=== PATIENT | female | born 1940 | race Caucasian/White ===

== ENCOUNTER 2017-01-06 10:13 | Day surgery (SDC) | payer MEDICARE ==
[~2017-01-06] VITALS: Ht 154.9 cm; Wt 67.2 kg
[2017-01-06] MEDS ORDERED: IOHEXOL 350 MG/ML 50 ML BTL (for Cath Lab) OTHER ONE (10:14)
[2017-01-06] MEDS ORDERED: TURM500C4 PO (10:58)
[2017-01-06] MEDS ORDERED: VITA10002 PO (10:58)
[2017-01-06] MEDS ORDERED: LISI-515 PO (10:58)
[2017-01-06] MEDS ORDERED: CO Q100C9 (10:58)
[2017-01-06] MEDS ORDERED: ATOR10TA15 PO (10:58)
[2017-01-06] MEDS ORDERED: LACTCAP8 PO (10:58)
[2017-01-06] MEDS ORDERED: MULTTAB67 PO (10:58)
[2017-01-06] MEDS ORDERED: DULE200A INH (10:58)
[2017-01-06] MEDS ORDERED: VITA200013 (10:58)
[2017-01-06] MEDS ORDERED: NS 1000P @30 MLS/HR (KVO) IV SCH (11:00)
[2017-01-06 11:01] VITALS: BP 181/93; PULSE 71; RESP 18; TEMP 98.1; O2SAT 97
[2017-01-06] MEDS ORDERED: MIDAZOLAM HCL 2 MG/2 ML VIAL ONE ×2 (12:16→12:47)
[2017-01-06] MEDS ORDERED: HEPARIN-NS/PF INJ 1,000 ML ONE (12:16)
[2017-01-06] MEDS ORDERED: MISC INFORMATION XX ONE (13:15)
[2017-01-06] MEDS ORDERED: oxyCODONE/ACETAMINOPHEN 5 MG/325 MG TAB PO PRN (13:15)
[2017-01-06] MEDS ORDERED: BACITRACIN OINT 0.9 GM PKT TOP ONE (13:15)
--- NOTE | 2017-01-06 13:21 | CATHPROC ---
[employer] HIS Report Study Information Study Number Admission Scheduled Start Study Start [id number] Jan 06 2017 10:13AM 01/06/2017 Jan 06 2017 11:49AM [facility] Cardiac Catheterization Admit Source Facility Department Other [facility] Operator Physician and Clinical Staff Initial Blair Carlin Senior Piping Designer Giancarlo Benitez RN Recorder Lori Land,JANA TECH2 Scrub Ryan Simms RCIS(BS) Procedures Performed Procedure Location (Site) Vessel Name Coronary Angiograms LCA Left Coronary Coronary Angiograms RCA Right Coronary Coronary Angiograms Radial (right) Radial Art. Wire insertion Fem Art (right) Femoral Art Equipment Time [employer] Dispatcher Description Size Mfg Part Number Used/Scraped TRANSDUCER, TRUWAVE [id number] 12:08 CASTRO CONNER * Used W/STOCKCOCK *[id number] *[id number] *[id number] WIRE, HYDROSTEER 150CM [id number] 12:54 [employer] [facility] 150CM Used ANGLED GLIDE *[id number] 12:08 [facility] PACK, CCL CUSTOM * Used *[id number] 12:08 [facility] SUPPORT, ARTERIAL ADULT [id number] *[id number] Used [id number] 12:08 [employer] PACER PEN, SKIN DUAL W/ RULER * Used *[id number] BAND, RADIAL COMPRESSION TR [id number] 13:07 [facility] 24CM Used SHORT 24 *[id number] SHEATH, FR6 RADIAL PRELUDE 12:08 [facility] FR 6 [id number] Used EASE 11CM [id number] 12:08 [facility] WIRE, EXCHANGE 260CM 3MMJ 260CM Used *[id number] 12:08 [employer] OMNIPAQUE, 350 MG, 150ML 150ML [id number] Used [id number] 12:08 [employer] BLANKET,WARM AIR CCL * Used *[id number] History: Current Medications Medication Dosage/Unit Route Frequency Last Date/Time Taken Statins (any) LISINOPRIL VITAMIN D History: Allergies Allergy Reaction nitrofurantoin pravastatin simvastatin penicillin G bee venom protein (honey bee) ezetimibe rosuvastatin History: Risk Factors Family History of Hypertension Dyslipidemia Previous FL Previous Heart Failure Premature CAD Yes Yes Yes No No Prior Valve Prior PCI Prior CABG Surgery No No No Cerebrovascular Peripheral Artery Chronic Lung On Dialysis Diabetes Disease Disease Disease No No No Yes No History: Symptoms/Diagnosis Selection Items SOB History: Stress Tests Stress or Imaging Studies Performed Yes Standard Exercise Stress Test No Stress Echo No Stress Test SPECT Stress Test SPECT Result Stress Test SPECT Ischemia Risk/Extent Yes Positive High Stress Test CMR No Cardiac CTA Coronary Calcium Score No No History: Other Disease Selection Items Gerd History: Other Current Smoker Method Quit Packs a Day Years Used Pack Years No Cigarettes 25 Years Ago 1 25 25 Labs Hgb (g/dl) Hct (%) WBC (l/cumm) Platelets (thousands) 11.60-17.00 35.00-51.00 4.00-11.00 150.00-450.00 12.4 38.9 7.9 222 Glucose (mg/dl) BUN (mg/dl) Creatinine (mg/dl) BUN:Creatinine (1:x) 74.00-106.00 7.00-18.00 0.50-1.30 10.00-20.00 93 17 0.7 24.3 Na (meq/l) K (meq/l) 136.00-145.00 3.50-5.10 143 4.3 INR (PTT:PT) 0.90-1.10 0.9 CPK-MB (ng/ML) 0.50-3.60 Not Drawn Medication Medication Total Dose (Bolus/Oral) Medication Total Dosage/Unit 1% XYLOCAINE 20 mL FENTANYL 50 mcg NTG (IC) 400 mcg OXYGEN 2 l/min VERSED 3 mg Medications (Bolus/Oral) Medication Time Given Dosage/Unit Administered By Reason 01/06/2017 12:43:38 VERSED 2 mg Giancarlo Benitez 2 mg VERSED given in lab by Giancarlo Benitez RN in Right Antecubital via Peripheral IV. Ordered by Blair Tran. 01/06/2017 12:43:40 FENTANYL 25 mcg Giancarlo Benitez 25 mcg FENTANYL given in lab by Giancarlo Benitez RN in Right Antecubital via Peripheral IV. Ordered by Blair Ireland. 01/06/2017 12:45:23 1% XYLOCAINE 20 mL Blair Ireland 20 mL 1% XYLOCAINE given in lab by Blair Ireland in Right Radial via Subcutaneous. Ordered by Blair Ireland. 01/06/2017 12:48:00 VERSED 1 mg Ferlitto, Giancarlo PM 1 mg VERSED given in lab by Giancarlo Benitez RN in Right Antecubital via Peripheral IV. Ordered by Blair Tran. 01/06/2017 12:48:44 FENTANYL 25 mcg Giancarlo Benitez PM 25 mcg FENTANYL given in lab by Giancarlo Benitez RN in Right Antecubital via Peripheral IV. Ordered by Blair Ireland. 01/06/2017 12:50:40 OXYGEN 2 l/min Giancarlo Benitez PM 2 l/min OXYGEN given in lab by Giancarlo Benitez RN via Nasal. Ordered by Blair Ireland. 01/06/2017 12:51:03 NTG (IC) 200 mcg Blair Ireland PM 200 mcg NTG (IC) given in lab by Blair Ireland in Right Radial via Intra-arterial. Ordered by Blair Ireland. NTG (IC) 01/06/2017 1:10:29 PM 200 mcg Ryan Simms 200 mcg NTG (IC) given in lab by Ryan Simms RCIS(ALISON) in Right Radial via Intra-arterial. Ordere d by Blair Ireland. Pt c/o wrist pain during sheath removal/TR band application Medication (Drip) Medication Time Given Dosage/Unit Concentration/Unit Diluent (ml) Solution 01/06/2017 12:13:10 IV Solutions 50 mL (IV) 500 NaCl .9 PM Patient arrived on IV Solutions in Right Antecubital via Peripheral IV. Pump/Drip Flow using NaCl .9. Initial Case Assessment Cardiovascular HR Rhythm NIBP Chest Pain 69 sr 141/73 0 Circulatory - Right Pulses Dorsalis Pedis Femoral Radial 1 1 2 Scale (0,1,2,3,4,d) Scale (0,1,2,3,4,d) Neurological State Oriented to time-place- Alert Moves all extremities person Respiration - General Respiration Rate SpO2 (%) (B/min) 10 97 Final Case Assessment Cardiovascular HR Rhythm NIBP Chest Pain 70 sr 146/74 0 Circulatory - Right Pulses Dorsalis Pedis Femoral Radial 1 1 2 Scale (0,1,2,3,4,d) Scale (0,1,2,3,4,d) Neurological State Oriented to time-place- Alert Moves all extremities person Respiration - General Respiration Rate SpO2 (%) O2 (lpm) (B/min) 11 99 2 Chronological Log Time Study Chronological Log 12:12:56 Patient arrived via Bed. 12:12:57 Patient Name, D.O.B, / Armband Verified By R.N. 12:12:58 Consent signed by the physician and the patient and verified by the [facility] Operator staff. 12:12:59 Pre-op and post- op instructions given; patient acknowledges understanding of instructions. 12:13:00 Verbal Stimulation=2 Physical Stimulation=2 Airway=2 Respiration=2 TOTAL=8. (0=absent, 1=li mited, 2=present) 12:13:02 Allens test performed on the right radial and ulnar artery. 12:13:04 Patient has been NPO for More than 6Hrs. 12:13:04 Skin Breakdown-none 12:13:05 Patient Warmer Placed on the Table. 12:13:09 A # 20 IV was noted in the Antecubital (right). Grade = Patent 12:13:10 Patient arrived on IV Solutions in Right Antecubital via Peripheral IV. Pump/Drip Flow usin g NaCl .9. 12:13:11 History and physical on the chart or being dictated. Assessment: Initial Case, HR=69 BPM, Rhythm=sr, NIEV=053/73 mmhg, Chest Pain=0 Right Pulses: Tristin Ped=1, Femoral=1, Radial=2 12:13:12 Neurological: State=Alert, Ox3, CARRILLO Respiration: Resp=10 B/min, SpO2=97 % Vitals capture started with the following parameters, Patient=Adult, Interval=5 min, Initial Pr pnyred=285 mmHg, 12:19:33 Deflation Rate=5 mmHg, Cuff placed on Right Arm 12:20:10 HR=65 bpm, TIOK=712/73 mmhg, SpO2=98.0 %, Resp=11 B/min, Pain=0, Lerner=2 12:20:37 Reference ECG taken 12:25:09 HR=66 bpm, GPMR=767/64 mmhg, SpO2=98.0 %, Resp=8 B/min, Pain=0, Lerner=2 12:27:54 Right groin and Right wrist prepped with 2% chlorhexidine, and draped after a 3 min. waitin g time. 12:30:08 HR=84 bpm, AGQV=178/78 mmhg, SpO2=99.0 %, Resp=12 B/min, Pain=0, Lerner=2 12:33:23 Pressure channel 1 zeroed. 12:35:13 HR=65 bpm, KDVQ=068/68 mmhg, SpO2=98.0 %, Resp=13 B/min, Pain=0, Lerner=2 12:40:12 HR=66 bpm, UIXY=300/75 mmhg, SpO2=97.0 %, Resp=10 B/min, Pain=0, Lerner=2 12:40:33 MD arrived. Time Out. Correct patient, correct procedure, correct physician, power injector loaded, or not loaded with contrast with 12:43:34 surgical team present. Time Out Concurred by MD and individual staff in procedure. 12:43:38 2 mg VERSED given in lab by Giancarlo Benitez, NICHOLAS in Right Antecubital via Peripheral IV. Orde red by Blair Ireland. 12:43:40 25 mcg FENTANYL given in lab by Giancarlo Benitez RN in Right Antecubital via Peripheral IV. Ordered by Blair Ireland. 12:45:11 HR=73 bpm, HUEI=988/76 mmhg, SpO2=97.0 %, Resp=12 B/min 12:45:16 Case Start 12:45:23 20 mL 1% XYLOCAINE given in lab by Blair Ireland in Right Radial via Subcutaneous. Ordered by Blair Ireland. 12:48:00 1 mg VERSED given in lab by Giancarlo Benitez, NICHOLAS in Right Antecubital via Peripheral IV. Orde red by Blair Ireland. 12:48:44 25 mcg FENTANYL given in lab by Giancarlo Benitez, NICHOLAS in Right Antecubital via Peripheral IV. Ordered by Blair Ireland. 12:50:14 HR=72 bpm, YVRT=316/65 mmhg, SpO2=88.0 %, Resp=18 B/min 12:50:36 Access site was Radial Artery. right 12:50:40 2 l/min OXYGEN given in lab by Giancarlo Benitez, NICHOLAS via Nasal. Ordered by Blair Ireland. A SHEATH, FR6 RADIAL PRELUDE EASE 11CM FR 6 was advanced into the Radial (right) using the Perc utaneous 12:50:48 technique. 12:51:03 200 mcg NTG (IC) given in lab by Blair Ireland in Right Radial via Intra-arterial. Ordered by Blair Ireland. A JR 5.0 INFINITI CATHETER FR 5 was advanced over a wire. OMNIPAQUE, 350 MG, 150ML 150ML was us ed for 12:51:39 injections. 12:52:05 Catheter was removed, unable to advance. 12:53:05 The Radial (right) was injected and visualized. OMNIPAQUE, 350 MG, 150ML 150ML used. 12:54:25 A WIRE, HYDROSTEER 150CM ANGLED GLIDE 150CM was inserted via Fem Art (right). A JR 5.0 INFINITI CATHETER FR 5 was advanced over a wire. OMNIPAQUE, 350 MG, 150ML 150ML was us ed for 12:54:39 injections. 12:55:09 HR=73 bpm, XROX=501/74 mmhg, SpO2=93.0 %, Resp=11 B/min Recorded Pressure: LV, HR=70, Condition=Condition 1 12:56:31 (Left Ventricle) LV 142/1/9 Recorded Pressure: LV, Ao, HR=69, Condition=Condition 1 12:56:34 (Left Ventricle) LV 145/1/8, (Aorta) Ao 147/66/100 12:57:01 The RCA was injected and visualized at various angles. OMNIPAQUE, 350 MG, 150ML 150ML use d. 13:00:12 HR=75 bpm, KKEY=300/69 mmhg, SpO2=97.0 %, Resp=16 B/min After removing the current catheter a JL 3.5 INFINITI CATHETER FR 5 was advanced over a WIRE, EXCHANGE 260CM 13:01:31 3MMJ 260CM. 13:01:43 The LCA was injected and visualized at various angles. OMNIPAQUE, 350 MG, 150ML 150ML use d. After removing the current catheter a JR 5.0 INFINITI CATHETER FR 5 was advanced over a WIRE, EXCHANGE 260CM 13:02:39 3MMJ 260CM. 13:04:26 The RCA was injected and visualized at various angles. OMNIPAQUE, 350 MG, 150ML 150ML use d. 13:04:34 Catheter was removed 13:05:14 HR=73 bpm, HVUW=259/69 mmhg, SpO2=99.0 %, Resp=12 B/min 13:05:47 Case End 13:08:00 Cine recording checked. 13:08:03 Bedside Report will be given. 13:10:15 HR=77 bpm, SEQT=729/74 mmhg, SpO2=99.0 %, Resp=12 B/min 200 mcg NTG (IC) given in lab by Ryan Simms RCIS(BS) in Right Radial via Intra-arterial. Ordered by Beka 13:10:29 Blair. Pt c/o wrist pain during sheath removal/TR band application Radial Compression Device Used. 11 mLs of air placed in BAND, RADIAL COMPRESSION TR SHORT 24 2 4CM. Affected 13:10:44 hand 97 % O2 saturation. Assessment: Final Case, HR=70 BPM, Rhythm=sr, GCIX=881/74 mmhg, Chest Pain=0 Right Pulses: Tristin Ped=1, Femoral=1, Radial=2 13:12:40 Neurological: State=Alert, Ox3, CARRILLO Respiration: Resp=11 B/min, SpO2=99 %, O2=2 lpm 13:14:59 No case complications noted. 13:15:28 Vitals capture stopped. 13:19:58 Patient moved to bed 13:21:34 Patient transported to DOCU. End Study - Contrast Media Used In Study Contrast Total Opened (mL) Total Used (mL) Total Wasted (mL) Omnipaque 30 30 0 End Study - Maximum Contrast Load Max Contrast Load (mL) 479.9 End Study - Radiation Exposure Fluoro Time (minutes) 3.5 End Study - Sheaths Sheaths Pulled By Sheath Hold Time (min) Ryan Simms End Study - Patient Disposition Complications Transferred To Interventional Outcome No Telemetry Bed No attempt made
--- NOTE | 2017-01-06 14:32 | MA ---
cc: JAZ GREGORIO MD DATE: 01/06/2017 PROCEDURE PERFORMED 1. Fluoroscopy with interpretation. 2. Left heart catheterization. 3. Coronary angiography. METHOD The risks, benefits and alternatives were discussed with the patient. The patient understood and consented to the procedure. The patient was brought to the cardiac catheterization lab, placed on the catheterization table. The right wrist was prepped and draped in sterile fashion. The right wrist was anesthetized with 2% lidocaine. The right radial artery was cannulated and a 6-Kazakh 7 cm sheath was placed without difficulty. LEFT HEART CATHETERIZATION Intraventricular hemodynamics measured at 145/1 mmHg. The left ventricular end diastolic pressure of 8 mmHg. No significant aortic stenosis by transaortic valvular pullback gradient. CORONARY ANGIOGRAPHY 1. Left main coronary is angiographically normal. 2. Left anterior descending coronary is quite small distally and tortuous, fading towards the apex. There is a moderate-sized diagonal branch, angiographically normal. 3. Left circumflex gives rise to two obtuse marginal branches, both of which are small caliber size but angiographically normal. 4. The right coronary is a dominant vessel giving rise to a posterior descending branch. The right coronary is angiographically normal. CONCLUSIONS 1. Mild nonobstructive coronary disease. 2. Normal left sided filling pressure. PLAN Will monitor the patient closely for any post-procedural complications. No significant obstructive disease, so we will just optimize medical management. Her distal LAD is small in caliber size and likely reflects the abnormality on stress test. Her shortness of breath is probably more lung than it is cardiac. MD MEHNAZ Arango/NITHIN /1:10 PM /2:28 PM
== END 2017-01-06 16:32 | disposition home or self-care (01) ==
LOC: HDOC 10:13 → HDIC 10:14 → HDOC 16:32
PROVIDERS: ATTEND Internal Medicine
DX: I25.10 Atherosclerotic heart disease of native coronary artery without angina pectoris (principal); E78.5 Hyperlipidemia, unspecified; I10 Essential (primary) hypertension; J44.9 Chronic obstructive pulmonary disease, unspecified; K21.9 Gastro-esophageal reflux disease without esophagitis; Z87.891 Personal history of nicotine dependence
CPT/HCPCS: 86850; 86900; 86901; 93458; 99152; 99153; C1769; C1893; J1644; J2250; J3010; Q9967